=== PATIENT | male | born 1970 | race African-American/Black ===

== ENCOUNTER 2020-09-30 12:40 | Emergency (ER) | payer OTHER ==
[~2020-09-30] VITALS: Ht 175.3 cm; Wt 145.1 kg
[2020-09-30 12:50] VITALS: BP 145/94
--- NOTE | 2020-09-30 12:50 | NUR ---
ED Nurse Note: Pt walked in to ED c/o lower abdominal pain x2 days. Denies nausea, vomiting, diarrhea. Temp 100.1F at triage. AAox4, verbally responsive. No SOB, on room air.
[2020-09-30] MEDS ORDERED: Morphine Sulfate 4mg/ml Inj (IV USE ONLY) IVP ONE (13:30)
[2020-09-30] MEDS ORDERED: Omnipaque-300 100ml vial INJ PRN (13:30)
--- NOTE | 2020-09-30 13:31 | NUR ---
ED Nurse Note: IV line established. Blood and urine sent to lab.
[2020-09-30 13:58] LABS: BASOPHILS % (AUTO) 0.6 % (0.0-2.0); EOSINOPHILS % (AUTO) 0.3 % (0.0-3.0); HEMATOCRIT 45.8 % (42.0-52.0); HEMOGLOBIN 14.8 G/DL (14.2-18.0); LYMPHOCYTES % (AUTO) 12.1 % (20.0-45.0); MEAN CORPUSCULAR VOLUME 87 FL (80-99); MONOCYTES % (AUTO) 5.4 % (1.0-10.0); NEUTROPHILS % (AUTO) 81.6 % (45.0-75.0); PLATELET COUNT 264 K/UL (150-450); RED BLOOD COUNT 5.27 M/UL (4.70-6.10); RED CELL DISTRIBUTION WIDTH 13.7 % (11.6-14.8); WHITE BLOOD COUNT 16.9 K/UL (4.8-10.8)
[2020-09-30 14:13] LABS: ANION GAP 10 mmol/L (5-15); BLOOD UREA NITROGEN 12 mg/dL (7-18); CARBON DIOXIDE 28 MMOL/L (21-32); CHLORIDE 102 MMOL/L (98-107); CREATININE 1.3 MG/DL (0.55-1.30); POTASSIUM 3.6 MMOL/L (3.5-5.1); SODIUM 140 MMOL/L (136-145)
[2020-09-30 14:19] LABS: ALANINE AMINOTRANSFERASE 18 U/L (12-78); ALBUMIN/GLOBULIN RATIO 0.6 (1.0-2.7); ALKALINE PHOSPHATASE 84 U/L (46-116); ASPARTATE AMINO TRANSFERASE 11 U/L (15-37); BILIRUBIN,TOTAL 0.6 MG/DL (0.2-1.0)
--- NOTE | 2020-09-30 14:27 | Emergency Room Report ---
History of Present Illness General Chief Complaint: Abdominal Pain Source: Patient (Veronica Jasso) Present Illness HPI 50-year-old male presents to the emergency department complaining of 10 out of 10 severity midline lower abdominal pain as rest. 3 umbilical pain x2 to 3 days. Patient also reports feeling feverish. Patient denies vomiting. He reports nausea due to pain and decreased appetite states he has not eaten in 2 days. He denies constipation or diarrhea. Patient reports initially he thought his symptoms was due to to needing to have a bowel movement so he took some laxative and had 3 bowel movements after that. Patient reports last bowel movement was this morning. He denies blood in the stool. He denies black tarry stools. He denies history of hernias. Patient reports tenderness as well. He reports he is unable to keep his pants buckled or have anything touching him. Patient reports he gets some mild reduction in his pain when he in the right decubital position. He denies chest pain, palpitations, back pain, shortness of breath, dizziness or syncope. No other aggravating or relieving factors. He denies significant past medical history. He denies urinary symptoms or testicular pain/swelling. Patient denies swollen or tender lymph nodes. 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 COVID-19 Screening: Negative COVID-19 COVID-19 Testing Source: clinic (Veronica Jasso) Patient History Past Medical History: see triage record, HTN Past Surgical History: none Pertinent Family History: none Reviewed Nursing Documentation: PMH: Agreed; PSxH: Agreed (Veronica Jasso) Nursing Documentation-PMH Hx Hypertension: Yes (Veronica Jasso) Review of Systems All Other Systems: negative except mentioned in HPI (Veronica Jasso) Physical Exam Vital Signs Date Time Temp Pulse Resp B/P (MAP) Pulse Ox O2 Delivery O2 Flow Rate FiO2 09/30/20 12:45 100.0 98 19 145/94 (111) 94 Room Air Sp02 EP Interpretation: reviewed, normal General Appearance: no apparent distress, alert, GCS 15, non-toxic Head: normocephalic, atraumatic Eyes: bilateral eye normal inspection, bilateral eye PERRL ENT: hearing grossly normal, normal voice Neck: full range of motion Respiratory: chest non-tender, lungs clear, normal breath sounds, no wheezing, speaking full sentences Cardiovascular #1: regular rate, rhythm Gastrointestinal: normal bowel sounds, soft, non-distended, tenderness - lower periumbillical area and mid lower abdomen. , overweight Musculoskeletal: back normal, normal range of motion, gait/station normal, non- tender Neurologic: alert, motor strength/tone normal, oriented x3, sensory intact, responsive, speech normal Psychiatric: judgement/insight normal Skin: no rash, normal color (Veronica Jasso) Medical Decision Making PA Attestation Dr. Bernstein Is my supervising Physician whom patient management has been discussed with. (Veronica Jasso) PA Attestation Participate in the care of this patient along with MINE Campbell Briefly this a 50-year-old male presenting for abdominal pain. CT scan shows evidence of diverticulitis with microperforation. Treated with ceftriaxone and Flagyl. Patient has been discussed with Dr. Paris who is accepted the patient and will be transferred to [facility]. Stable for transfer. (Regis Osorio MD) Diagnostic Impression: Primary Impression: Diverticulitis of intestine with perforation Qualified Codes: K57.20 - Diverticulitis of large intestine with perforation and abscess without bleeding Additional Impressions: Abdominal pain Qualified Codes: R10.30 - Lower abdominal pain, unspecified UTI (urinary tract infection) Qualified Codes: N30.01 - Acute cystitis with hematuria ER Course 50-year-old male presents to the emergency department complaining of 10 out of 10 severity midline lower abdominal pain as rest. 3 umbilical pain x2 to 3 days. Patient also reports feeling feverish. Patient denies vomiting. He reports nausea due to pain and decreased appetite states he has not eaten in 2 days. He denies constipation or diarrhea. Patient reports initially he thought his symptoms was due to to needing to have a bowel movement so he took some laxative and had 3 bowel movements after that. Patient reports last bowel movement was this morning. He denies blood in the stool. He denies black tarry stools. He denies history of hernias. Patient reports tenderness as well. He reports he is unable to keep his pants buckled or have anything touching him. Patient reports he gets some mild reduction in his pain when he in the right decubital position. He denies chest pain, palpitations, back pain, shortness of breath, dizziness or syncope. No other aggravating or relieving factors. He denies significant past medical history. He denies urinary symptoms or testicular pain/swelling. Patient denies swollen or tender lymph nodes. Ddx considered but are not limited to hernia/strangulated or incarcerated hernia, obstruction, diverticulitis, acute appendicitis, gastroenteritis,UC, PUD, GE, pancreatitis, gallstones just to name a few. Vital signs: are WNL, pt. is afebrile H&PE are most consistent with Hypovolemia and diarrhea ORDERS: -CBC: elevated WBC's at 16.9 - CMP: electrolytes normal, normal renal function - lipase: WNL -UA: 2+ protein, Ketones and blood, with elevation in inflammatory markers and presence of bacteria. ED INTERVENTIONS: -- 4mg morphine - 20mg Pepcid IV -Flagyl IV -Cipro IV DISPOSITION: at this time pt. will be admitted to Dr. Paris for diverticulitis and microperforation. Dr. Paris agreed to admit the pt. at [facility] ( per telephone conversation with Dr. Osorio )and to continue pt. care management. Labs Test 09/30/20 13:31 09/30/20 14:03 White Blood Count 16.9 K/UL (4.8-10.8) Red Blood Count 5.27 M/UL (4.70-6.10) Hemoglobin 14.8 G/DL (14.2-18.0) Hematocrit 45.8 % (42.0-52.0) Mean Corpuscular Volume 87 FL (80-99) Mean Corpuscular Hemoglobin 28.0 PG (27.0-31.0) Mean Corpuscular Hemoglobin Concent 32.3 G/DL (32.0-36.0) Red Cell Distribution Width 13.7 % (11.6-14.8) Platelet Count 264 K/UL (150-450) Mean Platelet Volume 7.0 FL (6.5-10.1) Neutrophils (%) (Auto) 81.6 % (45.0-75.0) Lymphocytes (%) (Auto) 12.1 % (20.0-45.0) Monocytes (%) (Auto) 5.4 % (1.0-10.0) Eosinophils (%) (Auto) 0.3 % (0.0-3.0) Basophils (%) (Auto) 0.6 % (0.0-2.0) Sodium Level 140 MMOL/L (136-145) Potassium Level 3.6 MMOL/L (3.5-5.1) Chloride Level 102 MMOL/L (98-107) Carbon Dioxide Level 28 MMOL/L (21-32) Anion Gap 10 mmol/L (5-15) Blood Urea Nitrogen 12 mg/dL (7-18) Creatinine 1.3 MG/DL (0.55-1.30) Estimat Glomerular Filtration Rate > 60 mL/min (>60) Glucose Level 107 MG/DL (74-106) Calcium Level 9.0 MG/DL (8.5-10.1) Total Bilirubin 0.6 MG/DL (0.2-1.0) Aspartate Amino Transf (AST/SGOT) 11 U/L (15-37) Alanine Aminotransferase (ALT/SGPT) 18 U/L (12-78) Alkaline Phosphatase 84 U/L (46-116) Total Protein 8.2 G/DL (6.4-8.2) Albumin 3.0 G/DL (3.4-5.0) Globulin 5.2 g/dL Albumin/Globulin Ratio 0.6 (1.0-2.7) Lipase 57 U/L (73-393) Urine Color Brown Urine Appearance Slightly cloudy Urine pH 6 (4.5-8.0) Urine Specific [place] 1.020 (1.005-1.035) Urine Protein 2+ (NEGATIVE) Urine Glucose (UA) Negative (NEGATIVE) Urine Ketones 3+ (NEGATIVE) Urine Blood 4+ (NEGATIVE) Urine Nitrite Negative (NEGATIVE) Urine Bilirubin 1+ (NEGATIVE) Urine Ictotest Negative (NEGATIVE) Urine Urobilinogen 1 MG/DL (0.0-1.0) Urine Leukocyte Esterase 2+ (NEGATIVE) Urine RBC 10-15 /HPF (0 - 0) Urine WBC 5-10 /HPF (0 - 0) Urine Squamous Epithelial Cells Occasional /LPF Urine Bacteria Few /HPF (NONE) Urine Mucus Moderate /LPF (NONE/OCC) (Veronica Jasso) CT/MRI/US Diagnostic Results CT/MRI/US Diagnostic Results : Imaging Test Ordered: CT abdomen and pelvis with and without contrast Impression " Impression: Positive for acute sigmoid diverticulitis with focal perforation manifested by extraluminal gas. Unusual finding of inflammation of the mesenteric root with lymphadenopathy. 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 (Veronica Jasso) Last Vital Signs Date Time Temp Pulse Resp B/P (MAP) Pulse Ox O2 Delivery O2 Flow Rate FiO2 09/30/20 12:50 100.0 98 19 145/94 94 Room Air Status: improved (Veronica Jasso) Disposition: SHORT-TERM HOSP Condition: Serious Referrals: [facility],REFERRING (PCP) Veronica Jasso Sep 30, 2020 14:27 Regis Osorio MD Sep 30, 2020 18:37
[2020-09-30 14:36] LABS: APPEARANCE,URINE SLIGHTLY CLOUDY; BILIRUBIN, URINE 1+ (NEGATIVE); COLOR,URINE BROWN; GLUCOSE, URINE (UA) NEGATIVE (NEGATIVE); KETONES,URINE 3+ (NEGATIVE); LEUKOCYTE ESTERASE ,URINE 2+ (NEGATIVE); NITRITE,URINE NEGATIVE (NEGATIVE); PH,URINE 6 (4.5-8.0); PROTEIN,URINE 2+ (NEGATIVE); UROBILINOGEN,URINE 1 MG/DL (0.0-1.0)
--- NOTE | 2020-09-30 16:22 | NUR ---
ED Nurse Note: Pt was taken to CT via wc.
[2020-09-30 16:26] VITALS: BP 155/99
--- NOTE | 2020-09-30 16:45 | NUR ---
ED Nurse Note: Pt returned from CT, not in any distress.
--- NOTE | 2020-09-30 17:34 | Diagnostic Imaging Report ---
Clinical Indication: 10 out of 10 in severity midline lower abdominal pain at rest Technique: Patient given oral contrast. IV administration nonionic contrast. Venous phase spiral acquisition obtained through the abdomen and pelvis. Multiplanar reconstructions were generated. Total dose length product 1318 mGycm. CTDIvol(s) 23 mGy. Dose reduction achieved using automated exposure control Comparison: none Findings: There is thickening of the sigmoid wall. Infiltration of the mesenteric fat surrounding a diverticulum is noted. There is also gas within the adjacent mesenteric fat. No associated fluid collection There is also infiltration of the mesenteric root more cephalad. There are numerous prominent mesenteric nodes with infiltration of the fat surrounding the nodes. The appendix is normal. No small bowel distention. No free or loculated intraperitoneal fluid. No small bowel distention. Distal esophagus, stomach, duodenum are unremarkable. The liver, gallbladder, bile ducts, pancreas, spleen, adrenals, kidneys are unremarkable. No retroperitoneal mass or adenopathy. No pelvic mass or adenopathy. There is atelectasis at the left lung base. The bones are unremarkable. Impression: Positive for acute sigmoid diverticulitis with focal perforation manifested by extraluminal gas. Unusual finding of inflammation of the mesenteric root with lymphadenopathy. 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
--- NOTE | 2020-09-30 19:19 | NUR ---
HAND-OFF: Report given to Alexandria LIZ.
[2020-09-30 21:44] VITALS: BP 153/96
--- NOTE | 2020-09-30 21:45 | NUR ---
ER DISCHARGE NOTE: Patient is cleared to be TRANSFERED TO [facility]IA AMBULANCE per ERMD, pt is aox4, on room air, with stable vital signs. REPORT GIVEN TO CHARGE NURSE pt took all belongings.
[2020-09-30 21:46] VITALS: BP 153/96
== END 2020-09-30 21:45 | disposition short-term general hospital (02) ==
LOC: EMR 13:06
DX: K57.20 Diverticulitis of large intestine with perforation and abscess without bleeding (principal); R10.30 Lower abdominal pain, unspecified; N30.01 Acute cystitis with hematuria; I10 Essential (primary) hypertension
CPT/HCPCS: 36415; 74177; 80053; 81003; 83690; 85025; 96365; 96367; 96375; J0744; J2270; Q9965; S0028; Z7502; 99284